=== PATIENT | male | born 1980 | race American Indian/Alaskan Native ===

== ENCOUNTER 2017-08-10 23:06 | Emergency (ER) | payer BC ==
[2017-08-11] MEDS ORDERED: XYLOCAINE 2% INFILTRATI ONE ×2 (02:16→05:10)
[2017-08-11] MEDS ORDERED: BOOSTRIX IM ONE (03:21)
--- NOTE | 2017-08-11 04:06 | Emergency Department Report ---
- General Chief complaint: Skin/Abscess/Foreign Body Stated complaint: TICK STUCK ON R SIDE HIP Time Seen by Provider: 08/11/17 02:57 Source: patient Mode of arrival: Ambulatory Limitations: No Limitations - Related Data Allergies Allergy/AdvReac Type Severity Reaction Status Date / Time No Known Allergies Allergy Unverified 08/10/17 23:32 Abscess Boil [facility] Chief Complaint: Skin/Abscess/Foreign Body Stated Complaint: TICK STUCK ON R SIDE HIP Time Seen by Provider: 08/11/17 02:57 Allergies/Adverse Reactions: Allergies Allergy/AdvReac Type Severity Reaction Status Date / Time No Known Allergies Allergy Unverified 08/10/17 23:32 ED Review of Systems ROS: Stated complaint: TICK STUCK ON R SIDE HIP Other details as noted in HPI ED Past Medical Hx - Past Medical History Previous Medical History?: No - Surgical History Past Surgical History?: Yes Additional Surgical History: tonsil @ 6 - Social History Smoking Status: Never Smoker Substance Use Type: None ED Physical Exam - General Limitations: No Limitations ED Course Vital Signs 08/10/17 08/11/17 23:25 04:39 Temperature 97.6 F Pulse Rate 65 68 Respiratory 18 18 Rate Blood Pressure 127/83 125/80 [Left] O2 Sat by Pulse 100 Oximetry ED Medical Decision Making - Medical Decision Making Patient has been evaluated by this provider fast track. Patient had a tick to his right frontal hip which was removed by this provider. Discussed the patient I'll place him on doxycycline 100 mg to be given now. Critical care attestation.: If time is entered above; I have spent that time in minutes in the direct care of this critically ill patient, excluding procedure time. ED Disposition Clinical Impression: Tick bite with subsequent removal of tick Disposition: DC-01 TO HOME OR SELFCARE Is pt being admited?: No Does the pt Need Aspirin: No Condition: Stable Instructions: Tick Bite (ED) Additional Instructions: Please do a full body surveillance to be sure he had no other ticks. If you have a rash or start having any body aches or joint pain please follow- up with your primary care provider and informed them that you were bitten by a tick. You has been given medication prophylactically during your ER visit. You can take Tylenol or Motrin for pain. You had been given a tetanus shot. Referrals: PRIMARY CARE, [Primary Care Provider] - 3-5 Days [facility] [Provider Group] - 3-5 Days Forms: Accompanied Note, Work/School Release Form(ED)
[2017-08-11 04:40] VITALS: BP 125/80
[2017-08-11 04:58] LABS: Hepatitis A Antibody IgM Non-Reactive (NonReactive); Hepatitis B Core IgM Non-Reactive (NonReactive); Hepatitis B Surface Antigen Non-Reactive (Negative); Hepatitis C Virus Antibody Non-Reactive (NonReactive)
== END 2017-08-11 04:39 | disposition home or self-care (01) ==
LOC: ED 23:06
DX: S70.252A Superficial foreign body, left hip, initial encounter (principal); W57.XXXA Bitten or stung by nonvenomous insect and other nonvenomous arthropods, initial encounter; Y93.89 Activity, other specified; Y92.89 Other specified places as the place of occurrence of the external cause; Y99.8 Other external cause status
CPT/HCPCS: 36415; 80074; 87806; 90471; 90715